=== PATIENT | female | born 1950 | race Caucasian/White ===

== ENCOUNTER 2018-01-06 12:30 | Inpatient (IN) | payer MEDICARE ==
[~2018-01-06] VITALS: Ht 162.6 cm; Wt 72.1 kg
[~2018-01-06 12:30] MED LIST: CALC600T12 PO; MULT-1203 PO; ROSU20TA PO
[2018-01-07 10:15] VITALS: BP 159/80
[2018-01-07 10:48] LABS: BASOPHILS % (AUTO) 0.5 % (0.0-5.0); HEMATOCRIT 41.8 % (36-48); MEAN CORPUSCULAR HEMOGLOBIN 32.8 pg (27.0-33.0); MEAN CORPUSCULAR HGB CONC 34.1 g/dL (32.0-36.0); MEAN CORPUSCULAR VOLUME 96.3 fL (79-99); MONOCYTES % (AUTO) 10.1 % (3.0-13.0); NEUTROPHILS % (AUTO) 70.4 % (40.0-77.0); NUCLEATED RED BLOOD CELLS 0.1 % (0.0-0.19); PLATELET COUNT (AUTO) 194 K/uL (130-400); RED BLOOD CELL COUNT(AUTO) 4.34 MIL/uL (4.00-5.50); WHITE BLOOD COUNT (AUTO) 8.2 K/uL (4.8-10.8)
[2018-01-07 10:51] LABS: INR 0.9 (0.85-1.15); PARTIAL THROMBOPLASTIN TIME 24.8 SEC (26.3-35.5); PROTHROMBIN TIME 9.5 SEC (9.6-11.6)
[2018-01-07 10:54] LABS: ALBUMIN 3.6 g/dL (3.5-5.0); BILIRUBIN,TOTAL 0.4 mg/dL (0.2-1.0); CREATININE 0.6 mg/dL (0.5-1.5); POTASSIUM 4.6 mmol/L (3.5-5.1); TOTAL PROTEIN, SERUM 7.9 g/dL (6.0-8.3)
[2018-01-07] MEDS ORDERED: ASCO10007 PO (11:01)
[2018-01-07] MEDS ORDERED: ESOM40CA PO (11:01)
[2018-01-07] MEDS ORDERED: ZOLP10TA2 PO (11:01)
[2018-01-07] MEDS ORDERED: ASPI-1181 PO (11:01)
[2018-01-07] MEDS ORDERED: SUCR1TAB2 PO (11:01)
[2018-01-07] MEDS ORDERED: VALS160T29 PO (11:01)
[2018-01-07] MEDS ORDERED: METO25TA6 PO (11:01)
[2018-01-07] MEDS: CLINDAMYCIN 900 MG/D5% WATER 50 ML IV SCH (11:45)
[2018-01-07] MEDS ORDERED: BUDE10.2 IH (14:06)
[2018-01-07] MEDS ORDERED: ALBUHFA IH (14:06)
[2018-01-08] VITALS (12 sets, daily range): BP systolic 100–126; BP diastolic 45–78
[2018-01-08] MEDS ORDERED: SODIUM CHLORIDE 0.9% 1000ML 1,000 ML IV ONE (09:33)
[2018-01-08] MEDS ORDERED: LIDOCAINE PF 2% 5ML ABBOJECT ONE (11:36)
[2018-01-08] MEDS ORDERED: GLYCOPYRROLATE 0.2 MG/ML 5 ML VIAL ONE ×2 (11:36→14:13)
[2018-01-08] MEDS ORDERED: ONDANSETRON HCL 4 MG/2 ML VIAL ONE (11:36)
[2018-01-08] MEDS ORDERED: DEXAMETHASONE SOD PHOSPHATE 10MG/ML 1ML VIAL ONE (11:36)
[2018-01-08] MEDS ORDERED: FENTANYL CITRATE PF 50 MCG/1 ML 5ML AMP IV ONE (11:37)
[2018-01-08] MEDS ORDERED: PROPOFOL 10 MG/ML 20ML VIAL IV ONE ×2 (11:37→14:19)
[2018-01-08] MEDS ORDERED: MIDAZOLAM HCL 1 MG/ML 2ML VIAL ONE (11:37)
[2018-01-08] MEDS: CLINDAMYCIN 900 MG/D5% WATER 50 ML IV SCH (12:00)
[2018-01-08] MEDS ORDERED: BACITRACIN 50,000 UNIT VIAL ONE (12:24)
[2018-01-08] MEDS ORDERED: BUPIVACAINE/PF 0.5% 10ML VIAL ONE (13:18)
[2018-01-08] MEDS ORDERED: LABETALOL HCL 5 MG/ML 20ML VIAL IV ONE (14:41)
[2018-01-08 15:45] LABS: BASOPHILS % (AUTO) 0.4 % (0.0-5.0); EOSINOPHILS % (AUTO) 0.4 % (0.0-8.0); HEMATOCRIT 37.3 % (36-48); MEAN CORPUSCULAR HEMOGLOBIN 33.5 pg (27.0-33.0); MEAN CORPUSCULAR HGB CONC 34.5 g/dL (32.0-36.0); MEAN CORPUSCULAR VOLUME 97.1 fL (79-99); MONOCYTES % (AUTO) 5.7 % (3.0-13.0); NEUTROPHILS % (AUTO) 82.5 % (40.0-77.0); PLATELET COUNT (AUTO) 173 K/uL (130-400); RED BLOOD CELL COUNT(AUTO) 3.84 MIL/uL (4.00-5.50); RED CELL DISTRIBUTION WIDTH 14.9 % (11.0-15.5); WHITE BLOOD COUNT (AUTO) 11.5 K/uL (4.8-10.8)
[2018-01-08 15:54] LABS: CREATININE 0.5 mg/dL (0.5-1.5); POTASSIUM 3.9 mmol/L (3.5-5.1)
[2018-01-08] MEDS ORDERED: MAGNESIUM HYDROXIDE 30 ML/UDCUP PO PRN (16:00)
[2018-01-08] MEDS ORDERED: SODIUM CHLORIDE 0.9% 1000ML 1,000 ML IV SCH (16:00)
[2018-01-08] MEDS ORDERED: ACETAMINOPHEN 325 MG TAB PO PRN (16:00)
[2018-01-08] MEDS ORDERED: ONDANSETRON HCL 4 MG/2 ML VIAL IVP PRN (16:00)
[2018-01-08 16:01] LABS: MAGNESIUM 1.3 mg/dL (1.80-2.40); PHOSPHORUS 4.8 mg/dL (2.5-4.9)
[2018-01-08] MEDS: KETOROLAC TROMETHAMINE 30MG/ML IV PRN ×2 (16:07→21:40)
[2018-01-08] MEDS: CLINDAMYCIN 600 MG/D5% WATER 50 ML IV SCH ×2 (16:07→23:00)
[2018-01-08] MEDS: HYDROCODONE/ACETAMINOPHEN 5/325 MG TAB PO PRN (18:03)
[2018-01-08] MEDS ORDERED: MORPHINE SULFATE 4 MG/1ML SYG ONE (19:13)
[2018-01-08] MEDS: MORPHINE SULFATE 2 MG/ML 1ML SYG IVP PRN (19:18)
[2018-01-08] MEDS: FAMOTIDINE/PF 20 MG/2 ML VIAL IV SCH (20:45)
[2018-01-09] VITALS (10 sets, daily range): BP systolic 110–162; BP diastolic 46–74
[2018-01-09] MEDS ORDERED: MORPHINE SULFATE 4 MG/1ML SYG ONE ×3 (00:14→20:20)
[2018-01-09] MEDS ORDERED: LIDOCAINE HCL-MPF 1% 2ML VIAL IVP PRN (01:00)
[2018-01-09] MEDS ORDERED: POTASSIUM CHLORIDE 20MEQ/100ML 100 ML IV PRN (01:00)
[2018-01-09] MEDS ORDERED: POTASSIUM CHLORIDE 10% ELIXIR 20 MEQ/15 ML UDCUP PO PRN (01:00)
[2018-01-09] MEDS: KETOROLAC TROMETHAMINE 30MG/ML IV PRN ×3 (02:36→22:23)
[2018-01-09 04:16] LABS: BASOPHILS % (AUTO) 0.3 % (0.0-5.0); EOSINOPHILS % (AUTO) 0.2 % (0.0-8.0); HEMATOCRIT 35.4 % (36-48); LYMPHOCYTES % (AUTO) 10.5 % (21.0-51.0); MEAN CORPUSCULAR HEMOGLOBIN 33.3 pg (27.0-33.0); MEAN CORPUSCULAR HGB CONC 34.8 g/dL (32.0-36.0); MEAN CORPUSCULAR VOLUME 95.9 fL (79-99); MONOCYTES % (AUTO) 7.1 % (3.0-13.0); NEUTROPHILS % (AUTO) 81.9 % (40.0-77.0); PLATELET COUNT (AUTO) 158 K/uL (130-400); RED BLOOD CELL COUNT(AUTO) 3.69 MIL/uL (4.00-5.50); RED CELL DISTRIBUTION WIDTH 14.6 % (11.0-15.5)
[2018-01-09 04:40] LABS: CREATININE 0.5 mg/dL (0.5-1.5); MAGNESIUM 1.2 mg/dL (1.80-2.40); PHOSPHORUS 4.2 mg/dL (2.5-4.9); POTASSIUM 3.6 mmol/L (3.5-5.1)
[2018-01-09] MEDS: CLINDAMYCIN 600 MG/D5% WATER 50 ML IV SCH (08:14)
[2018-01-09] MEDS: FAMOTIDINE/PF 20 MG/2 ML VIAL IV SCH ×2 (08:15→20:24)
[2018-01-09] MEDS ORDERED: MAGNESIUM 4GM PREMIX 100ML 100 ML IV SCH (08:15)
[2018-01-09] MEDS: FENTANYL 50 MCG/HR PATCH TD SCH (08:16)
[2018-01-09] MEDS: POTASSIUM CHLORIDE 20 MEQ ERTAB PO PRN ×2 (08:16→11:17)
[2018-01-09] MEDS ORDERED: SUB PER P&T FOR ASTHMA OR COPD RECOMMENDATION IH SCH (09:39)
[2018-01-09] MEDS: IPRATROPIUM/ALBUTEROL SULFATE 3 ML SOLUTION IH SCH ×3 (11:55→23:09)
[2018-01-09] MEDS: TRAMADOL HCL 50 MG TABLET PO PRN (18:17)
[2018-01-09] MEDS: BUDESONIDE 0.5 MG/2 ML INH IH SCH (18:44)
[2018-01-09] MEDS: METOPROLOL TARTRATE 25 MG TAB PO SCH (20:24)
[2018-01-10] VITALS (7 sets, daily range): BP systolic 135–168; BP diastolic 61–89
[2018-01-10] MEDS ORDERED: MORPHINE SULFATE 4 MG/1ML SYG ONE ×4 (01:54→20:14)
[2018-01-10 03:28] LABS: HEMATOCRIT 34.3 % (36-48); MEAN CORPUSCULAR HGB CONC 36.1 g/dL (32.0-36.0); MEAN CORPUSCULAR VOLUME 96.8 fL (79-99); PLATELET COUNT (AUTO) 152 K/uL (130-400); RED BLOOD CELL COUNT(AUTO) 3.54 MIL/uL (4.00-5.50); RED CELL DISTRIBUTION WIDTH 14.5 % (11.0-15.5); WHITE BLOOD COUNT (AUTO) 8.6 K/uL (4.8-10.8)
[2018-01-10 03:36] LABS: CREATININE 0.5 mg/dL (0.5-1.5); POTASSIUM 4.3 mmol/L (3.5-5.1)
[2018-01-10] MEDS: KETOROLAC TROMETHAMINE 30MG/ML IV PRN ×2 (04:37→12:10)
[2018-01-10] MEDS: BUDESONIDE 0.5 MG/2 ML INH IH SCH ×2 (06:21→19:34)
[2018-01-10] MEDS: IPRATROPIUM/ALBUTEROL SULFATE 3 ML SOLUTION IH SCH ×4 (06:21→23:50)
[2018-01-10] MEDS: FAMOTIDINE/PF 20 MG/2 ML VIAL IV SCH ×2 (08:54→20:20)
[2018-01-10] MEDS: LOSARTAN 100 MG TABLET PO SCH (08:55)
[2018-01-10] MEDS: METOPROLOL TARTRATE 25 MG TAB PO SCH ×2 (08:55→20:21)
[2018-01-10] MEDS: MORPHINE SULFATE 2 MG/ML 1ML SYG IVP PRN ×2 (08:56→15:41)
[2018-01-10] MEDS: HYDROCODONE/ACETAMINOPHEN 5/325 MG TAB PO PRN (12:10)
[2018-01-10] MEDS: GABAPENTIN 300 MG CAPSULE PO SCH (20:20)
[2018-01-11] MEDS: HYDROCODONE/ACETAMINOPHEN 5/325 MG TAB PO PRN ×4 (02:20→19:59)
[2018-01-11 04:00] VITALS: BP 156/69
[2018-01-11] MEDS: MORPHINE SULFATE 4 MG/1ML SYG ONE ×2 (04:11→04:16)
[2018-01-11 04:57] LABS: HEMATOCRIT 34.8 % (36-48); MEAN CORPUSCULAR HEMOGLOBIN 33.2 pg (27.0-33.0); MEAN CORPUSCULAR HGB CONC 34.4 g/dL (32.0-36.0); MEAN CORPUSCULAR VOLUME 96.5 fL (79-99); PLATELET COUNT (AUTO) 176 K/uL (130-400); RED CELL DISTRIBUTION WIDTH 14.6 % (11.0-15.5); WHITE BLOOD COUNT (AUTO) 7.5 K/uL (4.8-10.8)
[2018-01-11 05:08] LABS: B-TYPE NATRIURETIC PEPTIDE 176 pg/mL (0-100)
[2018-01-11 05:09] LABS: CREATININE 0.5 mg/dL (0.5-1.5)
[2018-01-11] MEDS: IPRATROPIUM/ALBUTEROL SULFATE 3 ML SOLUTION IH SCH ×4 (06:18→23:13)
[2018-01-11] MEDS: BUDESONIDE 0.5 MG/2 ML INH IH SCH ×2 (06:35→19:17)
[2018-01-11 07:00] VITALS: BP 131/62
[2018-01-11] MEDS: GABAPENTIN 300 MG CAPSULE PO SCH ×3 (07:50→19:52)
[2018-01-11] MEDS: LOSARTAN 100 MG TABLET PO SCH (07:50)
[2018-01-11] MEDS: METOPROLOL TARTRATE 25 MG TAB PO SCH ×2 (07:50→19:53)
[2018-01-11] MEDS: FAMOTIDINE/PF 20 MG/2 ML VIAL IV SCH (09:02)
[2018-01-11 11:00] VITALS: BP 129/54
[2018-01-11 16:00] VITALS: BP 122/69
[2018-01-11 19:26] VITALS: BP 138/74
[2018-01-11] MEDS: FUROSEMIDE 20 MG TABLET PO SCH (19:53)
[2018-01-11] MEDS: FAMOTIDINE 20MG TAB 20 MG TAB PO SCH (19:54)
[2018-01-11] MEDS: POTASSIUM CHLORIDE 20 MEQ ERTAB PO SCH (19:54)
[2018-01-12] MEDS ORDERED: MORPHINE SULFATE 4 MG/1ML SYG ONE ×2 (00:17→21:46)
[2018-01-12 03:51] LABS: MEAN CORPUSCULAR HEMOGLOBIN 33.6 pg (27.0-33.0); MEAN CORPUSCULAR HGB CONC 35.1 g/dL (32.0-36.0); MEAN CORPUSCULAR VOLUME 95.7 fL (79-99); PLATELET COUNT (AUTO) 182 K/uL (130-400); RED BLOOD CELL COUNT(AUTO) 3.55 MIL/uL (4.00-5.50); RED CELL DISTRIBUTION WIDTH 14.3 % (11.0-15.5)
[2018-01-12 04:00] VITALS: BP 120/67
[2018-01-12 04:12] LABS: CREATININE 0.4 mg/dL (0.5-1.5); MAGNESIUM 1.5 mg/dL (1.80-2.40); PHOSPHORUS 3.9 mg/dL (2.5-4.9)
[2018-01-12] MEDS: KETOROLAC TROMETHAMINE 30MG/ML IV PRN ×2 (04:26→11:52)
[2018-01-12 05:00] VITALS: BP 120/57
[2018-01-12] MEDS: BUDESONIDE 0.5 MG/2 ML INH IH SCH ×2 (06:14→18:01)
[2018-01-12] MEDS: IPRATROPIUM/ALBUTEROL SULFATE 3 ML SOLUTION IH SCH ×4 (06:14→23:40)
[2018-01-12 07:00] VITALS: BP 139/80
[2018-01-12] MEDS: METOPROLOL TARTRATE 25 MG TAB PO SCH ×2 (09:23→20:17)
[2018-01-12] MEDS: FUROSEMIDE 20 MG TABLET PO SCH (09:23)
[2018-01-12] MEDS: LOSARTAN 100 MG TABLET PO SCH (09:23)
[2018-01-12] MEDS: FAMOTIDINE 20MG TAB 20 MG TAB PO SCH ×2 (09:24→20:17)
[2018-01-12] MEDS: MAGNESIUM 2GM PREMIX 50ML 50 ML IV SCH (09:24)
[2018-01-12] MEDS: POTASSIUM CHLORIDE 20 MEQ ERTAB PO SCH ×2 (09:24→20:17)
[2018-01-12] MEDS: FENTANYL 50 MCG/HR PATCH TD SCH (09:25)
[2018-01-12] MEDS: GABAPENTIN 300 MG CAPSULE PO SCH ×3 (09:25→20:16)
[2018-01-12] MEDS ORDERED: POLYETHYLENE GLYCOL 3350 17 GM POWD.PACK PO PRN (10:34)
[2018-01-12 11:00] VITALS: BP 154/70
[2018-01-12 16:00] VITALS: BP 146/71
[2018-01-12] MEDS: TRAMADOL HCL 50 MG TABLET PO PRN (16:12)
[2018-01-12] MEDS ORDERED: PHARMACY COMMUNICATION MISC SCH (18:15)
[2018-01-12] MEDS: FUROSEMIDE 40 MG TABLET PO SCH (19:13)
[2018-01-12 19:53] VITALS: BP 157/68
[2018-01-12] MEDS: DOCUSATE SODIUM 100 MG CAP PO SCH (20:16)
[2018-01-13] VITALS (7 sets, daily range): BP systolic 119–145; BP diastolic 55–80
[2018-01-13 03:57] LABS: HEMATOCRIT 37.1 % (36-48); MEAN CORPUSCULAR HEMOGLOBIN 32.6 pg (27.0-33.0); MEAN CORPUSCULAR HGB CONC 33.9 g/dL (32.0-36.0); MEAN CORPUSCULAR VOLUME 96.3 fL (79-99); PLATELET COUNT (AUTO) 225 K/uL (130-400); RED BLOOD CELL COUNT(AUTO) 3.85 MIL/uL (4.00-5.50); RED CELL DISTRIBUTION WIDTH 14.1 % (11.0-15.5); WHITE BLOOD COUNT (AUTO) 7.4 K/uL (4.8-10.8)
[2018-01-13 04:09] LABS: CREATININE 0.5 mg/dL (0.5-1.5); MAGNESIUM 1.6 mg/dL (1.80-2.40); POTASSIUM 3.9 mmol/L (3.5-5.1)
[2018-01-13] MEDS: HYDROCODONE/ACETAMINOPHEN 5/325 MG TAB PO PRN ×2 (04:11→21:52)
[2018-01-13] MEDS: FUROSEMIDE 40 MG TABLET PO SCH ×2 (05:42→17:16)
[2018-01-13] MEDS: BUDESONIDE 0.5 MG/2 ML INH IH SCH ×2 (07:06→18:49)
[2018-01-13] MEDS: IPRATROPIUM/ALBUTEROL SULFATE 3 ML SOLUTION IH SCH ×4 (07:06→23:46)
[2018-01-13] MEDS: DOCUSATE SODIUM 100 MG CAP PO SCH ×2 (08:58→21:48)
[2018-01-13] MEDS: FAMOTIDINE 20MG TAB 20 MG TAB PO SCH ×2 (08:58→21:49)
[2018-01-13] MEDS: LOSARTAN 100 MG TABLET PO SCH (08:59)
[2018-01-13] MEDS: METOPROLOL TARTRATE 25 MG TAB PO SCH ×2 (08:59→21:49)
[2018-01-13] MEDS: POTASSIUM CHLORIDE 20 MEQ ERTAB PO SCH ×2 (08:59→21:48)
[2018-01-13] MEDS: GABAPENTIN 300 MG CAPSULE PO SCH ×3 (08:59→21:49)
[2018-01-13] MEDS: MAGNESIUM 2GM PREMIX 50ML 50 ML IV SCH (09:01)
[2018-01-13] MEDS: ENOXAPARIN SODIUM 30 MG/0.3 ML SQ SCH (09:01)
[2018-01-13] MEDS: TRAMADOL HCL 50 MG TABLET PO PRN (11:14)
[2018-01-13] MEDS: KETOROLAC TROMETHAMINE 30MG/ML IV PRN (16:24)
[2018-01-14] MEDS: TRAMADOL HCL 50 MG TABLET PO PRN ×3 (03:18→17:03)
[2018-01-14 04:00] VITALS: BP 135/72
[2018-01-14] MEDS: FUROSEMIDE 40 MG TABLET PO SCH ×2 (05:18→17:03)
[2018-01-14] MEDS: BUDESONIDE 0.5 MG/2 ML INH IH SCH ×2 (06:21→18:11)
[2018-01-14] MEDS: IPRATROPIUM/ALBUTEROL SULFATE 3 ML SOLUTION IH SCH ×4 (06:21→23:36)
[2018-01-14 07:28] VITALS: BP 115/58
[2018-01-14] MEDS: ENOXAPARIN SODIUM 30 MG/0.3 ML SQ SCH (08:38)
[2018-01-14] MEDS: LOSARTAN 100 MG TABLET PO SCH (09:34)
[2018-01-14] MEDS: FAMOTIDINE 20MG TAB 20 MG TAB PO SCH ×2 (09:34→21:02)
[2018-01-14] MEDS: METOPROLOL TARTRATE 25 MG TAB PO SCH ×2 (09:34→21:02)
[2018-01-14] MEDS: GABAPENTIN 300 MG CAPSULE PO SCH ×3 (09:34→21:02)
[2018-01-14] MEDS: POTASSIUM CHLORIDE 20 MEQ ERTAB PO SCH ×2 (09:35→21:02)
[2018-01-14] MEDS: DOCUSATE SODIUM 100 MG CAP PO SCH ×2 (09:35→21:02)
[2018-01-14 11:16] VITALS: BP 121/67
[2018-01-14 16:10] VITALS: BP 113/55
[2018-01-14 19:37] VITALS: BP 128/62
[2018-01-14] MEDS: HYDROCODONE/ACETAMINOPHEN 5/325 MG TAB PO PRN (21:13)
[2018-01-14 23:29] VITALS: BP 116/56
[2018-01-15] MEDS: TRAMADOL HCL 50 MG TABLET PO PRN ×2 (03:13→20:10)
[2018-01-15 03:44] VITALS: BP 141/63
[2018-01-15] MEDS: FUROSEMIDE 40 MG TABLET PO SCH ×2 (05:55→16:50)
[2018-01-15] MEDS: IPRATROPIUM/ALBUTEROL SULFATE 3 ML SOLUTION IH SCH ×4 (06:10→23:04)
[2018-01-15] MEDS: BUDESONIDE 0.5 MG/2 ML INH IH SCH ×2 (06:19→18:43)
[2018-01-15 07:35] VITALS: BP 121/61
[2018-01-15] MEDS: POTASSIUM CHLORIDE 20 MEQ ERTAB PO SCH ×2 (08:48→20:09)
[2018-01-15] MEDS: HYDROCODONE/ACETAMINOPHEN 5/325 MG TAB PO PRN ×3 (08:48→23:26)
[2018-01-15] MEDS: FAMOTIDINE 20MG TAB 20 MG TAB PO SCH ×2 (08:48→20:11)
[2018-01-15] MEDS: LOSARTAN 100 MG TABLET PO SCH (08:48)
[2018-01-15] MEDS: ENOXAPARIN SODIUM 30 MG/0.3 ML SQ SCH (08:49)
[2018-01-15] MEDS: DOCUSATE SODIUM 100 MG CAP PO SCH ×2 (08:49→20:10)
[2018-01-15] MEDS: METOPROLOL TARTRATE 25 MG TAB PO SCH ×2 (08:49→20:11)
[2018-01-15] MEDS: GABAPENTIN 300 MG CAPSULE PO SCH ×3 (08:49→20:10)
[2018-01-15] MEDS: FENTANYL 50 MCG/HR PATCH TD SCH (08:54)
[2018-01-15 09:40] LABS: CREATININE 0.7 mg/dL (0.5-1.5); POTASSIUM 4.2 mmol/L (3.5-5.1)
[2018-01-15 11:03] VITALS: BP 104/52
[2018-01-15 16:07] VITALS: BP 102/39
[2018-01-15 19:23] VITALS: BP 116/51
[2018-01-15 23:36] VITALS: BP_SYST 110; BP_SYST 128; BP_DIAS 63; BP_DIAS 66
[2018-01-16] MEDS: TRAMADOL HCL 50 MG TABLET PO PRN (02:55)
[2018-01-16 03:30] VITALS: BP 127/71
[2018-01-16] MEDS: FUROSEMIDE 40 MG TABLET PO SCH ×2 (05:45→17:07)
[2018-01-16] MEDS: IPRATROPIUM/ALBUTEROL SULFATE 3 ML SOLUTION IH SCH ×2 (06:16→11:27)
[2018-01-16] MEDS: BUDESONIDE 0.5 MG/2 ML INH IH SCH (06:27)
[2018-01-16 07:00] VITALS: BP 121/62
[2018-01-16] MEDS: LOSARTAN 100 MG TABLET PO SCH (07:57)
[2018-01-16] MEDS: FAMOTIDINE 20MG TAB 20 MG TAB PO SCH (07:57)
[2018-01-16] MEDS: METOPROLOL TARTRATE 25 MG TAB PO SCH (07:58)
[2018-01-16] MEDS: DOCUSATE SODIUM 100 MG CAP PO SCH (07:58)
[2018-01-16] MEDS: POTASSIUM CHLORIDE 20 MEQ ERTAB PO SCH (07:59)
[2018-01-16] MEDS: ENOXAPARIN SODIUM 30 MG/0.3 ML SQ SCH (08:00)
[2018-01-16] MEDS: GABAPENTIN 300 MG CAPSULE PO SCH ×2 (08:01→13:43)
[2018-01-16] MEDS ORDERED: FURO20TA6 PO (09:35)
[2018-01-16 11:00] VITALS: BP 104/58
[2018-01-16] MEDS: HYDROCODONE/ACETAMINOPHEN 5/325 MG TAB PO PRN ×3 (12:36→18:56)
[2018-01-16 16:00] VITALS: BP 132/66
== END 2018-01-16 19:05 | disposition home or self-care (01) | DRG 164 ==
LOC: EDSTATUS 12:30 → DAHIP 01-08 09:05 → 2CH 01-08 15:11 → 2AH 01-09 11:23
PROVIDERS: ADMIT Thoracic Surgery (Cardiothoracic Vascular Surgery); ATTEND Thoracic Surgery (Cardiothoracic Vascular Surgery)
PROC: 0BTG0ZZ Resection of Left Upper Lung Lobe, Open Approach (ICD-10-PCS; principal; 2018-01-08 11:45)
PROC: 07B70ZX Excision of Thorax Lymphatic, Open Approach, Diagnostic (ICD-10-PCS; 2018-01-08 11:45)
PROC: 0W9B00Z Drainage of Left Pleural Cavity with Drainage Device, Open Approach (ICD-10-PCS; 2018-01-08 11:45)
DX: C34.12 Malignant neoplasm of upper lobe, left bronchus or lung (principal); D62 Acute posthemorrhagic anemia; J44.9 Chronic obstructive pulmonary disease, unspecified; J93.82 Other air leak; J93.9 Pneumothorax, unspecified; F17.210 Nicotine dependence, cigarettes, uncomplicated; E78.5 Hyperlipidemia, unspecified; I10 Essential (primary) hypertension; I25.10 Atherosclerotic heart disease of native coronary artery without angina pectoris; G89.18 Other acute postprocedural pain; Z90.710 Acquired absence of both cervix and uterus; Z95.5 Presence of coronary angioplasty implant and graft; Z80.0 Family history of malignant neoplasm of digestive organs
CPT/HCPCS: 36415; 71045; 71046; 80048; 80053; 83036; 83605; 83735; 83880; 84100; 85025; 85027; 85610; 85730; 86850; 86900; 86901; 86922; 88307; 88309; 93005; 94640; 94664; 94667; 94668; 94760; 97039; A7048; J1100; J1650; J1885; J2001; J2250; J2270; J2405; J2704; J3010; J3475; J3490; J7030; J7040

== ENCOUNTER 2019-01-28 05:30 | Day surgery (SDC) | payer MEDICARE ==
[2019-01-28] VITALS (7 sets, daily range): BP systolic 88–115; BP diastolic 45–67
[~2019-01-28] VITALS: Ht 161.3 cm; Wt 72.6 kg
[~2019-01-28 05:30] MED LIST changes: +ALBUHFA IH; +AMLO5TAB9 PO; +ASCO10007 PO; +ASPI-1181 PO; +FURO-151 PO; +LOSA50TA64 PO; +METO25TA6 PO; +POTA99TA4 PO; +RANO500T3 PO; -ROSU20TA PO; +ROSU20TA23 PO; +UMEC1DIS IH
[2019-01-28] MEDS ORDERED: SODIUM CHLORIDE 0.9% 1000ML 1,000 ML IV ONE (05:41)
[2019-01-28] MEDS ORDERED: PROPOFOL 10 MG/ML 20ML VIAL IV ONE ×2 (06:20→07:59)
[2019-01-28] MEDS ORDERED: LIDOCAINE HCL 1% 20 ML VIAL ONE ×2 (06:20→07:59)
[2019-01-28] MEDS ORDERED: GLYCOPYRROLATE 0.2 MG/ML 5 ML VIAL ONE (08:07)
== END 2019-01-28 08:50 | disposition home or self-care (01) ==
LOC: DAH 05:30 → ENDO 05:30
PROVIDERS: ATTEND Internal Medicine
DX: Z12.11 Encounter for screening for malignant neoplasm of colon (principal); D12.2 Benign neoplasm of ascending colon; D12.3 Benign neoplasm of transverse colon; K64.0 First degree hemorrhoids; K22.70 Barrett's esophagus without dysplasia; K44.9 Diaphragmatic hernia without obstruction or gangrene; K29.50 Unspecified chronic gastritis without bleeding; K57.30 Diverticulosis of large intestine without perforation or abscess without bleeding; Z86.010 Personal history of colon polyps; E78.5 Hyperlipidemia, unspecified; I10 Essential (primary) hypertension; J44.9 Chronic obstructive pulmonary disease, unspecified; I25.10 Atherosclerotic heart disease of native coronary artery without angina pectoris; D64.9 Anemia, unspecified; Z90.710 Acquired absence of both cervix and uterus; Z95.5 Presence of coronary angioplasty implant and graft; Z98.890 Other specified postprocedural states; Z79.899 Other long term (current) drug therapy; Z79.82 Long term (current) use of aspirin; Z80.0 Family history of malignant neoplasm of digestive organs; Z85.118 Personal history of other malignant neoplasm of bronchus and lung
CPT/HCPCS: 43239; 45380; 45385; 88305; 88342; A4606; J2704 ×2; J3490; J7030

== ENCOUNTER 2020-02-18 02:48 | Emergency (ER) | payer MEDICARE ==
[~2020-02-18 02:48] MED LIST changes: +AMLO-257 PO; -AMLO5TAB9 PO; +ASCO100031 PO; -ASCO10007 PO; -ASPI-1181 PO; +ASPI-1443 PO; -CALC600T12 PO; +CALC600T15 PO
[2020-02-18 04:21] LABS: BASOPHILS % (AUTO) 0.5 % (0.0-5.0); EOSINOPHILS % (AUTO) 1.6 % (0.0-8.0); HEMATOCRIT 43.1 % (36-48); LYMPHOCYTES % (AUTO) 13.9 % (21.0-51.0); MEAN CORPUSCULAR HEMOGLOBIN 33.1 pg (27.0-33.0); MEAN CORPUSCULAR HGB CONC 34.3 g/dL (32.0-36.0); MEAN CORPUSCULAR VOLUME 96.4 fL (79-99); NEUTROPHILS % (AUTO) 73.6 % (40.0-77.0); PLATELET COUNT (AUTO) 225 K/uL (130-400); RED BLOOD CELL COUNT(AUTO) 4.47 MIL/uL (4.00-5.50); RED CELL DISTRIBUTION WIDTH 13.2 % (11.0-15.5); WHITE BLOOD COUNT (AUTO) 10.1 K/uL (4.8-10.8)
[2020-02-18 04:22] LABS: CREATININE 0.6 mg/dL (0.5-1.5); POTASSIUM 4.4 mmol/L (3.5-5.1)
[2020-02-18 04:28] LABS: ALBUMIN 3.7 g/dL (3.5-5.0); BILIRUBIN,TOTAL 0.3 mg/dL (0.2-1.0); TOTAL PROTEIN, SERUM 7.6 g/dL (6.0-8.3)
[2020-02-18 04:47] LABS: APPEARANCE,URINE Clear (CLEAR); BILIRUBIN,URINE Negative (NEGATIVE); COLOR,URINE Yellow (YELLOW); GLUCOSE, URINE (UA) Negative (NEGATIVE); KETONES,URINE Negative (NEGATIVE); LEUKOCYTE ESTERASE ,URINE Negative (NEGATIVE); NITRATE,URINE Negative (NEGATIVE); OCCULT BLOOD,URINE Negative (NEGATIVE); PROTEIN,URINE Negative (NEGATIVE)
== END 2020-02-18 06:23 | disposition home or self-care (01) ==
LOC: EDH 02:48
DX: R10.11 Right upper quadrant pain (principal); I10 Essential (primary) hypertension; Z90.49 Acquired absence of other specified parts of digestive tract; Z90.710 Acquired absence of both cervix and uterus; Z87.891 Personal history of nicotine dependence; Z79.899 Other long term (current) drug therapy
CPT/HCPCS: 36415; 74176; 80053; 81003; 82150; 83690; 85025

== ENCOUNTER 2020-10-24 05:45 | Day surgery (SDC) | payer MEDICARE ==
[2020-10-21 10:31] VITALS: BP 141/73
[~2020-10-24] VITALS: Ht 160 cm; Wt 60.6 kg
[2020-10-24] VITALS (10 sets, daily range): BP systolic 102–118; BP diastolic 49–66
[~2020-10-24 05:45] MED LIST changes: -AMLO-257 PO; -CALC600T15 PO; +CYAN50008 PO; +MAGN400C PO; +oxygen NASAL
[2020-10-24] MEDS ORDERED: LACTATED RINGERS 1000ML 1,000 ML IV ONE (06:23)
[2020-10-24] MEDS: CEFAZOLIN SODIUM 1 GM VIAL ONE ×2 (06:27→08:35)
[2020-10-24 06:37] LABS: BASOPHILS % (AUTO) 0.7 % (0.0-5.0); EOSINOPHILS % (AUTO) 1.9 % (0.0-8.0); HEMATOCRIT 39.8 % (36-48); MEAN CORPUSCULAR HEMOGLOBIN 32.6 pg (27.0-33.0); MEAN CORPUSCULAR HGB CONC 33.4 g/dL (32.0-36.0); MEAN CORPUSCULAR VOLUME 97.5 fL (79-99); NEUTROPHILS % (AUTO) 74.2 % (40.0-77.0); PLATELET COUNT (AUTO) 285 K/uL (130-400); RED BLOOD CELL COUNT(AUTO) 4.08 MIL/uL (4.00-5.50); RED CELL DISTRIBUTION WIDTH 13.2 % (11.0-15.5); WHITE BLOOD COUNT (AUTO) 9.6 K/uL (4.8-10.8)
[2020-10-24] MEDS ORDERED: SUCCINYLCHOLINE CHLORIDE 20 MG/ML 10 ML VIAL ONE (07:17)
[2020-10-24] MEDS ORDERED: LIDOCAINE PF 2% 5ML ABBOJECT ONE (07:17)
[2020-10-24] MEDS ORDERED: GLYCOPYRROLATE 1 MG/5 ML SYRINGE ONE (07:18)
[2020-10-24] MEDS ORDERED: MIDAZOLAM HCL 1 MG/ML 2ML VIAL ONE (07:18)
[2020-10-24] MEDS ORDERED: DEXAMETHASONE SOD PHOSPHATE 10MG/ML 1ML VIAL ONE (07:18)
[2020-10-24] MEDS ORDERED: PROPOFOL 10 MG/ML 20ML VIAL IV ONE (07:18)
[2020-10-24] MEDS ORDERED: ONDANSETRON HCL 4 MG/2 ML VIAL ONE (07:19)
[2020-10-24] MEDS ORDERED: ROCURONIUM 10MG/1ML SYR 10 MG/ML ML ONE (07:19)
[2020-10-24] MEDS ORDERED: NEOSTIGMINE 5MG/5ML SYR IV ONE (07:19)
[2020-10-24] MEDS ORDERED: FENTANYL CITRATE PF 50 MCG/1 ML 2ML VIAL ONE ×2 (07:19→08:51)
[2020-10-24 07:21] LABS: CREATININE 0.7 mg/dL (0.5-1.5); POTASSIUM 4.7 mmol/L (3.5-5.1)
[2020-10-24] MEDS ORDERED: BUPIVACAINE/PF 0.5% 10ML VIAL ONE (07:38)
[2020-10-24] MEDS ORDERED: IOPAMIDOL 10 ML VIAL ONE (08:20)
[2020-10-24] MEDS ORDERED: CLIN300C3 PO (09:11)
== END 2020-10-24 10:15 | disposition home or self-care (01) ==
LOC: DAH 05:45
PROVIDERS: ATTEND Orthopaedic Surgery
DX: M16.0 Bilateral primary osteoarthritis of hip (principal); Z20.822 Contact with and (suspected) exposure to COVID-19; G89.29 Other chronic pain; I11.9 Hypertensive heart disease without heart failure; I25.10 Atherosclerotic heart disease of native coronary artery without angina pectoris; E78.00 Pure hypercholesterolemia, unspecified; Z90.89 Acquired absence of other organs; Z90.710 Acquired absence of both cervix and uterus; Z98.890 Other specified postprocedural states; Z87.891 Personal history of nicotine dependence; Z72.89 Other problems related to lifestyle; Z79.899 Other long term (current) drug therapy; Z79.82 Long term (current) use of aspirin
CPT/HCPCS: 20610; 36415; 77002; 80048; 85025; 93005; A4215; A4221; A4222; A4223; A4663; A4930; A6260; C9803; J0330; J0690; J1030; J1100; J2001; J2250; J2405; J2704; J2710; J3010 ×2; J3490 ×2; J7030; J7120; Q9966; U0003

== ENCOUNTER → 2022-06-18 | Outpatient (CLI) | payer MEDICARE ==
[~2022-06-18] MED LIST changes: -CYAN50008 PO; -FURO-151 PO; +HYDR-4060 PO; +LEVO-70 PO; -MAGN400C PO; -MULT-1203 PO; +PANT40TA54 PO; -POTA99TA4 PO; -oxygen NASAL
== END | disposition home or self-care (01) ==
LOC: RAH 12:38
PROVIDERS: ATTEND Neurological Surgery
DX: M54.12 Radiculopathy, cervical region (principal)
CPT/HCPCS: 72141

== ENCOUNTER 2022-07-19 05:39 | Day surgery (SDC) | payer MEDICARE ==
[2022-07-17 11:54] LABS: BASOPHILS % (AUTO) 0.8 % (0.0-5.0); EOSINOPHILS % (AUTO) 1.4 % (0.0-8.0); HEMATOCRIT 40.3 % (36-48); LYMPHOCYTES % (AUTO) 23.9 % (21.0-51.0); MEAN CORPUSCULAR HEMOGLOBIN 33.4 pg (27.0-33.0); MEAN CORPUSCULAR VOLUME 101.3 fL (79-99); MONOCYTES % (AUTO) 8.4 % (3.0-13.0); NEUTROPHILS % (AUTO) 65.1 % (40.0-77.0); PLATELET COUNT (AUTO) 209 K/uL (130-400); RED BLOOD CELL COUNT(AUTO) 3.98 MIL/uL (4.00-5.50); RED CELL DISTRIBUTION WIDTH 13.3 % (11.0-15.5); WHITE BLOOD COUNT (AUTO) 8.3 K/uL (4.8-10.8)
[2022-07-17 12:16] LABS: CREATININE 0.6 mg/dL (0.5-1.5); POTASSIUM 4.4 mmol/L (3.5-5.1)
[2022-07-18 09:29] VITALS: BP 120/61
[2022-07-19] VITALS (14 sets, daily range): BP systolic 116–149; BP diastolic 52–64
[~2022-07-19] VITALS: Ht 161.3 cm; Wt 59.1 kg
[~2022-07-19 05:39] MED LIST changes: +AEC81 PO; -ALBUHFA IH; -ASCO100031 PO; -ASPI-1443 PO; +FAMO40TA7 PO; +FURO40TA5 PO; -HYDR-4060 PO; -LEVO-70 PO; +MELA1TAB21 PO; +MVIT PO; +NITR0.4T50 SL; -PANT40TA54 PO; +PHARMACY COMMUNICATION MISC SCH; +PREVAGEN PO
[2022-07-19] MEDS ORDERED: LACTATED RINGERS 1000ML 1,000 ML IV ONE (06:04)
[2022-07-19] MEDS ORDERED: SUCCINYLCHOLINE CHLORIDE 20 MG/ML 10 ML VIAL ONE (06:51)
[2022-07-19] MEDS ORDERED: LIDOCAINE PF 100MG/5ML (2%) SYRINGE 5ML ONE (06:51)
[2022-07-19] MEDS ORDERED: GLYCOPYRROLATE 1 MG/5 ML SYRINGE ONE (06:51)
[2022-07-19] MEDS ORDERED: DEXAMETHASONE SOD PHOSPHATE 10MG/ML 1ML VIAL ONE (06:51)
[2022-07-19] MEDS ORDERED: ROCURONIUM 10MG/1ML SYR 10 MG/ML ML ONE (06:52)
[2022-07-19] MEDS ORDERED: ONDANSETRON 4MG INJ ONE (06:52)
[2022-07-19] MEDS ORDERED: NEOSTIGMINE 5MG/5ML SYR IV ONE (06:52)
[2022-07-19] MEDS ORDERED: FENTANYL CITRATE PF 50 MCG/1 ML 2ML VIAL ONE (06:52)
[2022-07-19] MEDS ORDERED: MIDAZOLAM HCL 1 MG/ML 2ML VIAL ONE (06:52)
[2022-07-19] MEDS ORDERED: PROPOFOL 10 MG/ML 20ML VIAL IV ONE (06:52)
[2022-07-19] MEDS ORDERED: BUPIVACAINE/EPI/PF 0.25% 10ML VIAL IJ ONE (07:00)
[2022-07-19] MEDS: CEFAZOLIN SODIUM 1 GM VIAL ONE ×3 (07:00→07:30)
[2022-07-19] MEDS ORDERED: ALBU18HF7 IH (07:02)
[2022-07-19] MEDS ORDERED: OXYGEN NASAL (07:02)
[2022-07-19] MEDS ORDERED: PHENYLEPHRINE HCL 10 MG/ML 1ML VIAL IV ONE (07:15)
[2022-07-19] MEDS ORDERED: MEPERIDINE-PF 25 MG/ML SYG ONE (07:55)
[2022-07-19] MEDS ORDERED: BUPIVACAINE/EPI/PF 0.25% 30ML VIAL IJ SCH (09:30)
== END 2022-07-19 10:10 | disposition home or self-care (01) ==
LOC: DAH 05:39
PROVIDERS: ATTEND Neurological Surgery
DX: G56.22 Lesion of ulnar nerve, left upper limb (principal); Z20.822 Contact with and (suspected) exposure to COVID-19; K21.9 Gastro-esophageal reflux disease without esophagitis; I10 Essential (primary) hypertension; Z79.899 Other long term (current) drug therapy
CPT/HCPCS: 80048; 85025; 87426; 36415; 71045; 93005; 64718; A6260; A4663; C1713; A4649; J7120; J3010; J0690; J3490 ×3; J1100; J2710; J0330; J2001; J2250; J2704; J2405; J2175; J2370; A4215; A4223; A4222; A4221

== ENCOUNTER → 2024-02-03 | Outpatient (CLI) | payer MEDICARE ==
[~2024-02-03] MED LIST changes: +ALBU18HF7 IH; -MELA1TAB21 PO; +MELA1TAB73 PO; +OXYGEN NASAL; -PHARMACY COMMUNICATION MISC SCH
== END | disposition home or self-care (01) ==
LOC: RAH 13:14
PROVIDERS: ATTEND Internal Medicine Cardiovascular Disease
DX: J43.8 Other emphysema (principal); J98.4 Other disorders of lung; Z85.118 Personal history of other malignant neoplasm of bronchus and lung
CPT/HCPCS: 71250

== ENCOUNTER → 2024-02-12 | Outpatient (CLI) | payer MEDICARE ==
[2024-02-12] MEDS: REGADENOSON 0.4 MG/5 ML PF SYG IVP SCH (14:03)
== END | disposition home or self-care (01) ==
LOC: RAH 10:29
PROVIDERS: ATTEND Internal Medicine Cardiovascular Disease
DX: R06.02 Shortness of breath (principal); R06.09 Other forms of dyspnea
CPT/HCPCS: 78452; 96374; 93017; J2785; A9500 ×2